=== PATIENT | male | born 2000 | race Caucasian/White ===

== ENCOUNTER 2023-12-29 04:30 | Day surgery (SDC) | payer OTHER ==
[2023-12-25 14:32] VITALS: BMI 24.1
[2023-12-29] MEDS ORDERED: BUPIVACAINE HCL/PF 0.25% (2.5MG/ML) 10 ML VIAL ONE (13:36)
[2023-12-29] MEDS ORDERED: HEPARIN NA (PORCINE) 5,000 UNITS/ML 1ML VIAL ONE (13:36)
[2023-12-29] MEDS ORDERED: ONDANSETRON 4 MG/2 ML VIAL ONE (14:05)
[2023-12-29] MEDS ORDERED: DEXAMETHASONE SOD PHOSPHATE 4 MG/1 ML VIAL ONE (14:05)
[2023-12-29] MEDS ORDERED: ROCURONIUM BROMIDE 50 MG/5 ML SYRINGE ONE (14:06)
[2023-12-29] MEDS ORDERED: MIDAZOLAM HCL 2 MG/2 ML SINGLE DOSE VIAL ONE (14:06)
[2023-12-29] MEDS ORDERED: PROPOFOL 20 ML ONE ×2 (14:06→14:35)
[2023-12-29] MEDS ORDERED: SEVOFLURANE 250 ML BTL ONE (14:37)
[2023-12-29] MEDS: BUPIVACAINE HCL/PF 2.5 MG/ML - 30 ML VIAL IJ ONE ×2 (14:39)
[2023-12-29] MEDS ORDERED: SUGAMMADEX SODIUM 200 MG/2 ML VIAL ONE (15:20)
[2023-12-29] MEDS: KETOROLAC TROMETHAMINE 30 MG/1 ML VIAL IVPUSH ONE (16:09)
[2023-12-29] MEDS: LACTATED RINGERS SOLUTION 1,000 ML IV SCH (16:09)
[2023-12-29] MEDS: ACETAMINOPHEN 1000 MG/100 ML BAG IVPB ONE (16:10)
[2023-12-29 17:19] VITALS: RESP 18
[2023-12-29 18:40] VITALS: BP 108/75; PULSE 78; TEMP 97.9
== END 2023-12-29 18:25 | disposition home or self-care (01) ==
LOC: JASU-SURG 04:30
PROVIDERS: ATTEND Surgery
PROC: 0YU50JZ Supplement Right Inguinal Region with Synthetic Substitute, Open Approach (ICD-10-PCS; principal; 2023-12-29 14:30)
DX: K40.90 Unilateral inguinal hernia, without obstruction or gangrene, not specified as recurrent (principal)
CPT/HCPCS: 86850; 86900; 86901; 88302-TC; 94760; C1781; J1644